=== PATIENT | male | born 1970 | race Caucasian/White ===

== ENCOUNTER 2020-04-09 17:10 | Emergency (ER) | payer OTHER ==
[~2020-04-09] VITALS: Ht 180.3 cm; Wt 88.9 kg
[2020-04-09 18:09] LABS: BASOPHIL % 0.6 % (0-2); PLATELET COUNT 205 x10^3mcL (130-400); RED CELL DISTRIBUTION WIDTH 13.9 % (11.5-14.5)
[2020-04-09 18:19] LABS: CALCIUM 9.7 mg/dL (8.5-10.1); CARBON DIOXIDE 24.3 mmol/L (21-32); CHLORIDE SERUM 106 mmol/L (98-107); CREATININE SERUM 0.9 mg/dL (0.7-1.3); GFR1 > 60 mL/min; GLUCOSE SERUM 233 mg/dL (74-106); POTASSIUM SERUM 3.4 mmol/L (3.5-5.1); SODIUM SERUM 140 mmol/L (136-145)
[2020-04-09 18:24] LABS: ALBUMIN 3.9 g/dL (3.4-5.0); ALKALINE PHOSPHATASE 71 U/L (46-116); ALT/SGPT 55 U/L (16-63); AST/SGOT 27 U/L (15-37); BILIRUBIN TOTAL 0.5 mg/dL (0.20-1.00); MAGNESIUM 2.1 mg/dL (1.8-2.4); TOTAL PROTEIN, SERUM 8.2 g/dL (6.4-8.2)
[2020-04-09 20:02] LABS: AMPHETAMINE QUAL UR NONE DETECTED (See below)
[2020-04-09 23:19] VITALS: BP 152/90
== END 2020-04-09 23:19 ==
LOC: ED 17:10
PROVIDERS: Emergency Medicine
DX: R07.89 Other chest pain (principal); I10 Essential (primary) hypertension; E11.9 Type 2 diabetes mellitus without complications; Z88.3 Allergy status to other anti-infective agents
CPT/HCPCS: 83880; J1200; J3490; J7030; Q0092